=== PATIENT | male | born 1960 | race Two or more races ===

== ENCOUNTER 2016-08-01 18:03 | Emergency (ER) | payer OTHER, MEDICAID ==
[2016-08-01] MEDS ORDERED: IOPAMIDOL 300 (61%) 150 ML VIAL IV ONE (18:04)
[2016-08-01] MEDS ORDERED: SODIUM CHLORIDE 0.9% 1,000 ML ONE (19:01)
[2016-08-01 19:24] LABS: ABSOLUTE NEUTROPHIL COUNT 3.7 K/mm3 (1.8-7.7); BASO % 0.4 % (0.2-1.0); EOS # 0.1 (0.0-0.5); EOS % 1.8 % (0.9-2.9); HEMATOCRIT 42.5 % (32.0-52.0); HEMOGLOBIN 14.1 gm/l (14.0-18.0); IMM NEUT% 0.2 % (0-1); LYMPH # 1.3 (1.0-4.8); LYMPH % 22.2 % (15-45); MEAN CELL VOLUME 92.2 fl (80.0-94.0); MEAN CORPUSCULAR HEMOGLOBIN 30.6 pg (27.0-31.0); MEAN CORPUSCULAR HGB CONC 33.2 g/dl (33.0-37.0); MEAN PLATELET VOLUME 12.4 fl (7.4-10.4); MONO # 0.5 (0.0-0.8); MONO % 9.6 % (4-12); NEUT % 65.8 % (43-75); PLATELET COUNT 76 K/mm3 (130-400); RED CELL DISTRIBUTION WIDTH 13.6 % (11.5-14.5)
[2016-08-01 19:33] LABS: ALB/GLOB RATIO 1.5 (>1.0); ALBUMIN 4.3 gm/dL (3.5-5.7); CALCIUM 9.4 mg/dL (8.6-10.3)
--- NOTE | 2016-08-01 20:26 | CT ---
Exam: CT abdomen and pelvis with contrast COMPARISON: 01/03/2012 and ultrasound 10/21/2013 INDICATION: Hernia. Abdominal pain. TECHNIQUE: CT examination of the abdomen and pelvis was obtained following the administration 155 mL Isovue-300 intravenous contrast. FINDINGS: Two small fat-containing anterior abdominal hernias are again identified, similar to that seen in the 01/03/2012 CT. One is located superior to the umbilicus and to the left of midline, with the defect/neck measuring up to 1.9 x 1.7 cm. The second is located below the level of the umbilicus to the right of midline, with the defect/neck measuring 1.3 x 1.5 cm. Bowel is unremarkable and there is no bowel obstruction, free air or free intraperitoneal fluid. Cirrhotic hepatic morphology. Numerable varices are again appreciated within the abdomen, particularly within the left upper quadrant and at the level of the umbilicus. The portal vein and its branches as well as the SMV and splenic vein remain patent. Spleen is mildly enlarged at 16.2 cm The pancreas, adrenal glands, kidneys and gallbladder are unremarkable. Minor atheromatous plaques are seen within the nonaneurysmal abdominal aorta. Aside from some minor dependent atelectasis, lung bases are clear. No worrisome lytic or blastic osseous lesion is identified. A few bridging osteophytes are noted within the lower thoracic spine. IMPRESSION: 1. No significant interval change since 01/03/2012. 2. Two small fat-containing anterior abdominal wall hernias are similar, and detailed above. 3. Cirrhotic hepatic morphology with evidence of portal venous hypertension including splenomegaly and upper abdominal varices but no ascites. Report called to Dr. Alvarez 2021 08/01/2016.
== END 2016-08-01 20:33 | disposition home or self-care (01) ==
LOC: ED 18:03
DX: K43.9 Ventral hernia without obstruction or gangrene (principal)
CPT/HCPCS: 83690; 85025; 80053; 80307; 74177; 99283 ×2; J7030; Q9967